=== PATIENT | female | born 1945 | race Caucasian/White ===

== ENCOUNTER 2022-06-06 11:21 | Oncology outpatient (recurring) (ONCR) | payer MEDICARE, OTHER, SELFPAY ==
[2022-06-06 12:52] LABS: Eosinophils # 0.1 10^3/uL (0.0-0.8); Eosinophils % 7.3 %; Hematocrit 40.1 % (37.0-47.0); Lymphocytes # 1.2 10^3/uL (0.8-4.8); Lymphocytes % 64.1 %; Mean Corpuscular HGB Conc 32.4 g/dL (30.0-36.0); Mean Corpuscular Hemoglobin 31.5 pg (28.0-34.0); Mean Corpuscular Volume 97.1 fl (81-99); Mean Platelet Volume 9.7 fL (7.4-10.4); Monocytes # 0.2 10^3/uL (0.2-0.9); Monocytes % 10.9 %; Nucleated Red Blood Cells % 0 %; Platelet Count 151 10^3/cmm (130-400); Red Blood Count 4.13 10^6/uL (4.1-5.3); Red Cell Distribution Width 13.7 % (12.1-15.1); White Blood Count 1.9 10^3/uL (4.0-10.0)
[2022-06-06 12:56] LABS: Neutrophils # 0.23 10^3/uL (1.8-7.7)
[2022-06-06 13:10] LABS: Alanine Aminotransferase 25 U/L (0-33); Albumin Level 3.9 g/dL (3.5-5.2); Alkaline Phosphatase 126 U/L (35-105); Anion Gap 12.9 (5-19); Aspartate Amino Transferase 18 U/L (0-32); Blood Urea Nitrogen 12 mg/dL (8-23); Calcium 9.1 mg/dL (8.5-10.5); Carbon Dioxide 27 mmol/L (22-29); Chloride 104 mmol/L (98-107); Globulin 2.3 g/dL (1.3-4.6); Glucose 98 mg/dL (65-115); Lactate Dehydrogenase 152 U/L (135-214); Osmolality Calculated 290 mOsm/kg (285-295); Potassium 3.9 mmol/L (3.5-5.1); Sodium 140 mmol/L (136-145); Total Bilirubin 0.4 mg/dL (0.15-1.2); Total Protein 6.2 g/dL (6.6-8.7)
[2022-06-06] MEDS: filgrastim-sndz 480 mcg/0.8 mL Syringe SUBCUT (14:54)
== END 2022-06-06 23:59 | disposition home or self-care (01) ==
PROVIDERS: Visit Provider Internal Medicine Medical Oncology
DX: C83.38 Diffuse large B-cell lymphoma, lymph nodes of multiple sites (principal); D70.1 Agranulocytosis secondary to cancer chemotherapy; T45.1X5A Adverse effect of antineoplastic and immunosuppressive drugs, initial encounter; Z79.899 Other long term (current) drug therapy; Z92.21 Personal history of antineoplastic chemotherapy; Z92.3 Personal history of irradiation
CPT/HCPCS: 36415; 80053; 83615; 85025; 96372; 99205; Q5101

== ENCOUNTER 2022-06-20 09:00 | Oncology outpatient (recurring) (ONCR) | payer MEDICARE, OTHER, SELFPAY ==
[2022-06-07] MEDS: filgrastim-sndz 480 mcg/0.8 mL Syringe SUBCUT (11:04)
[2022-06-08 14:36] VITALS: BP 143/72; PULSE 83; RESP 16; TEMP 37; O2SAT 98
[2022-06-08] MEDS: filgrastim-sndz 480 mcg/0.8 mL Syringe SUBCUT (14:55)
[2022-06-20 09:29] LABS: Basophils # 0.1 10^3/uL (0.0-0.1); Basophils % 1.3 %; Eosinophils % 0.6 %; Hematocrit 39.5 % (37.0-47.0); Hemoglobin 12.9 g/dL (11.5-15.3); Lymphocytes # 1.6 10^3/uL (0.8-4.8); Lymphocytes % 29.6 %; Mean Corpuscular HGB Conc 32.7 g/dL (30.0-36.0); Mean Corpuscular Hemoglobin 31.8 pg (28.0-34.0); Mean Corpuscular Volume 97.3 fl (81-99); Mean Platelet Volume 9.1 fL (7.4-10.4); Monocytes # 0.3 10^3/uL (0.2-0.9); Monocytes % 5.3 %; Neutrophils # 2.87 10^3/uL (1.8-7.7); Neutrophils % 54.5 %; Nucleated Red Blood Cells % 0 %; Platelet Count 270 10^3/cmm (130-400); Red Blood Count 4.06 10^6/uL (4.1-5.3); White Blood Count 5.3 10^3/uL (4.0-10.0)
[2022-06-20 09:46] LABS: Alanine Aminotransferase 58 U/L (0-33); Albumin Level 3.8 g/dL (3.5-5.2); Alkaline Phosphatase 141 U/L (35-105); Anion Gap 14.5 (5-19); Aspartate Amino Transferase 44 U/L (0-32); Blood Urea Nitrogen 19 mg/dL (8-23); Calcium 9.4 mg/dL (8.5-10.5); Carbon Dioxide 26 mmol/L (22-29); Chloride 104 mmol/L (98-107); Globulin 2.5 g/dL (1.3-4.6); Glucose 106 mg/dL (65-115); Osmolality Calculated 293 mOsm/kg (285-295); Potassium 4.5 mmol/L (3.5-5.1); Sodium 140 mmol/L (136-145); Total Bilirubin 0.4 mg/dL (0.15-1.2); Total Protein 6.3 g/dL (6.6-8.7)
[2022-06-20] MEDS: sodium chloride 0.9% 500 ML 75 ML IV (12:04)
[2022-06-20] MEDS: acetaminophen 325 mg Tablet 650 MG PO (12:07)
[2022-06-20] MEDS: diphenhydrAMINE 50 mg/mL SDV 1mL 25 MG IVP (12:08)
[2022-06-20 12:14] VITALS: BP 118/60; PULSE 70; RESP 16; TEMP 36.6; O2SAT 97
[2022-06-20 12:57] VITALS: BP 126/61; PULSE 73; RESP 16; TEMP 36.4; O2SAT 98
[2022-06-20 13:23] VITALS: BP 132/56; PULSE 76; RESP 16; TEMP 36.9; O2SAT 98
[2022-06-20 13:51] VITALS: BP 125/49; PULSE 73; RESP 16; TEMP 36.6; O2SAT 99
[2022-06-20 15:04] VITALS: BP 111/55; PULSE 81; RESP 16; TEMP 36.8; O2SAT 98
[2022-06-21 07:06] LABS: Lactate Dehydrogenase 216 U/L (135-214)
== END 2022-06-29 23:59 | disposition home or self-care (01) ==
PROVIDERS: Visit Provider Internal Medicine Medical Oncology
DX: C83.38 Diffuse large B-cell lymphoma, lymph nodes of multiple sites (principal); Z51.12 Encounter for antineoplastic immunotherapy
CPT/HCPCS: 80053; 83615; 85025; 96372; 96375; 96413; 96415; J1200; J7040; Q5101; Q5115

== ENCOUNTER 2022-07-08 10:00 | Oncology outpatient (recurring) (ONCR) | payer MEDICARE, OTHER, SELFPAY ==
[2022-07-04 11:41] LABS: Basophils % 0.9 %; Eosinophils # 0.2 10^3/uL (0.0-0.8); Eosinophils % 7.1 %; Lymphocytes # 1.2 10^3/uL (0.8-4.8); Lymphocytes % 36.8 %; Mean Corpuscular HGB Conc 32.5 g/dL (30.0-36.0); Mean Corpuscular Volume 98.5 fl (81-99); Mean Platelet Volume 9.5 fL (7.4-10.4); Monocytes # 0.3 10^3/uL (0.2-0.9); Monocytes % 8.4 %; Neutrophils # 1.19 10^3/uL (1.8-7.7); Neutrophils % 36.9 %; Nucleated Red Blood Cells % 0 %; Platelet Count 163 10^3/cmm (130-400); Red Blood Count 4.06 10^6/uL (4.1-5.3); Red Cell Distribution Width 14.2 % (12.1-15.1); White Blood Count 3.2 10^3/uL (4.0-10.0)
[2022-07-04 11:42] LABS: Slide Review Slide Review Perform
[2022-07-04 12:02] LABS: Alanine Aminotransferase 22 U/L (0-33); Albumin Level 3.8 g/dL (3.5-5.2); Alkaline Phosphatase 125 U/L (35-105); Blood Urea Nitrogen 18 mg/dL (8-23); Calcium 9.1 mg/dL (8.5-10.5); Carbon Dioxide 29 mmol/L (22-29); Chloride 101 mmol/L (98-107); Globulin 2.3 g/dL (1.3-4.6); Glucose 101 mg/dL (65-115); Osmolality Calculated 284 mOsm/kg (285-295); Sodium 136 mmol/L (136-145); Total Bilirubin 0.4 mg/dL (0.15-1.2); Total Protein 6.1 g/dL (6.6-8.7)
[2022-07-04 12:12] LABS: Anion Gap 10.2 (5-19); Aspartate Amino Transferase 23 U/L (0-32); Potassium 4.2 mmol/L (3.5-5.1)
[2022-07-07 11:44] LABS: Hematocrit 41.2 % (37.0-47.0); Hemoglobin 13.7 g/dL (11.5-15.3); Mean Corpuscular HGB Conc 33.3 g/dL (30.0-36.0); Mean Corpuscular Hemoglobin 32.1 pg (28.0-34.0); Mean Corpuscular Volume 96.5 fl (81-99); Mean Platelet Volume 9.6 fL (7.4-10.4); Platelet Count 172 10^3/cmm (130-400); Red Blood Count 4.27 10^6/uL (4.1-5.3); White Blood Count 2.7 10^3/uL (4.0-10.0)
[2022-07-07 12:00] VITALS: BP 138/78; PULSE 84; RESP 18; TEMP 36.6; O2SAT 98
[2022-07-07 12:16] LABS: Slide Review Slide Review Perform
[2022-07-07 12:17] LABS: Absolute Eosinophils 0.2 10^3/cmm (0.0-0.7); Absolute Segmented Neutrophil 0.4 10/cmm (1.6-7.1); Band Neutrophils Absolute 0.2 10^3/cmm (0.0-1.2); Eosinophils 9 %; Lymphocytes 56 %; Lymphocytes Absolute 1.5 10^3/cmm (1.2-3.4); Monocytes Absolute 0.1 10^3/cmm (0.1-0.6); Platelet Estimate Normal (Normal); Segmented Neutrophils 16 %; Total Cells Counted 100 (0-100)
[2022-07-07 12:24] LABS: Absolute Neutrophil 0.6 10^3/cmm (1.4-6.5)
[2022-07-07] MEDS: filgrastim-sndz 480 mcg/0.8 mL Syringe SUBCUT (12:44)
--- NOTE | 2022-07-07 14:34 | PC.NURSE ---
patient came in for the lab test to verify if she needs zarxio sq with DR Galaviz reviewing labs and ordering the zarxio for next three doses.
[2022-07-08] MEDS: filgrastim-sndz 480 mcg/0.8 mL Syringe SUBCUT (10:21)
== END 2022-07-30 23:59 | disposition home or self-care (01) ==
PROVIDERS: Visit Provider Internal Medicine Medical Oncology
DX: C83.38 Diffuse large B-cell lymphoma, lymph nodes of multiple sites; Z79.899 Other long term (current) drug therapy
CPT/HCPCS: 36415; 80053; 85007; 85025; 96372; 96401; Q5101

== ENCOUNTER 2022-12-27 10:30 | Oncology outpatient (recurring) (ONCR) | payer MEDICARE, OTHER, SELFPAY ==
[2022-12-12 10:30] LABS: Basophils % 0.8 %; Eosinophils # 0.5 10^3/uL (0.0-0.8); Eosinophils % 11.9 %; Hematocrit 39.7 % (37.0-47.0); Hemoglobin 13.2 g/dL (11.5-15.3); Lymphocytes # 1.6 10^3/uL (0.8-4.8); Lymphocytes % 41.1 %; Mean Corpuscular HGB Conc 33.2 g/dL (30.0-36.0); Mean Corpuscular Hemoglobin 30.9 pg (28.0-34.0); Monocytes # 0.3 10^3/uL (0.2-0.9); Monocytes % 8.1 %; Neutrophils # 1.06 10^3/uL (1.8-7.7); Nucleated Red Blood Cells % 0 %; Platelet Count 174 10^3/cmm (130-400); Red Blood Count 4.27 10^6/uL (4.1-5.3); Red Cell Distribution Width 14.3 % (12.1-15.1); White Blood Count 3.9 10^3/uL (4.0-10.0)
[2022-12-12 10:34] VITALS: BP 109/58; PULSE 77; RESP 16; TEMP 36.2; O2SAT 96
[2022-12-12 10:59] LABS: Neutrophils % 38.1 %; Slide Review Slide Review Perform
[2022-12-12] MEDS: filgrastim-sndz 480 mcg/0.8 mL Syringe SUBCUT (12:23)
[2022-12-12 12:36] VITALS: BP 109/58; PULSE 77; RESP 18; TEMP 36.2; O2SAT 96
[2022-12-27 11:25] LABS: Basophils # 0.1 10^3/uL (0.0-0.1); Basophils % 1.5 %; Eosinophils # 0.1 10^3/uL (0.0-0.8); Eosinophils % 1.3 %; Hemoglobin 13.4 g/dL (11.5-15.3); Lymphocytes # 1.7 10^3/uL (0.8-4.8); Lymphocytes % 31.4 %; Mean Corpuscular HGB Conc 32.7 g/dL (30.0-36.0); Mean Corpuscular Hemoglobin 30.4 pg (28.0-34.0); Mean Platelet Volume 9.1 fL (7.4-10.4); Monocytes # 0.4 10^3/uL (0.2-0.9); Monocytes % 6.8 %; Neutrophils # 2.49 10^3/uL (1.8-7.7); Neutrophils % 45.8 %; Nucleated Red Blood Cells % 0 %; Platelet Count 272 10^3/cmm (130-400); Red Blood Count 4.41 10^6/uL (4.1-5.3); Red Cell Distribution Width 14.2 % (12.1-15.1); White Blood Count 5.4 10^3/uL (4.0-10.0)
[2022-12-27 11:48] LABS: Alanine Aminotransferase 19 U/L (0-33); Alkaline Phosphatase 112 U/L (35-105); Anion Gap 13.3 (5-19); Aspartate Amino Transferase 18 U/L (0-32); Blood Urea Nitrogen 23 mg/dL (8-23); Calcium 8.6 mg/dL (8.5-10.5); Carbon Dioxide 25 mmol/L (22-29); Chloride 107 mmol/L (98-107); Globulin 2.2 g/dL (1.3-4.6); Glucose 99 mg/dL (65-115); Lactate Dehydrogenase 196 U/L (135-214); Osmolality Calculated 296 mOsm/kg (285-295); Potassium 4.3 mmol/L (3.5-5.1); Sodium 141 mmol/L (136-145); Total Bilirubin 0.4 mg/dL (0.15-1.2); Total Protein 6.2 g/dL (6.6-8.7)
[2022-12-27 12:06] LABS: Slide Review Slide Review Perform
[2022-12-27] MEDS: sodium chloride 0.9% 500 ML 100 ML IV (13:19)
[2022-12-27] MEDS: acetaminophen 325 mg Tablet 650 MG PO (13:19)
[2022-12-27] MEDS: diphenhydrAMINE 50 mg/mL SDV 1mL 25 MG IVP (13:20)
[2022-12-27 13:35] VITALS: BP 141/78; PULSE 67; TEMP 36.6; O2SAT 97
[2022-12-27 14:05] VITALS: BP 134/67; TEMP 36.2; O2SAT 95
[2022-12-27 14:35] VITALS: BP 130/71; PULSE 68; TEMP 36.8; O2SAT 96
[2022-12-27 15:08] VITALS: BP 126/64; PULSE 70; TEMP 36.5; O2SAT 100
[2022-12-27 16:44] VITALS: BP 128/69; PULSE 67; TEMP 36.3; O2SAT 96
== END 2022-12-28 23:59 | disposition home or self-care (01) ==
PROVIDERS: Visit Provider Internal Medicine Medical Oncology
DX: Z51.12 Encounter for antineoplastic immunotherapy (principal); C83.38 Diffuse large B-cell lymphoma, lymph nodes of multiple sites
CPT/HCPCS: 80053; 83615; 85025; 96372; 96375; 96413; 96415; 99214; J1200; J1642; J7040; Q5101; Q5115

== ENCOUNTER 2023-12-19 09:18 | Oncology outpatient (recurring) (ONCR) | payer MEDICARE, OTHER, SELFPAY ==
[2023-12-06 15:25] LABS: Hematocrit 36.8 % (36-47); Mean Corpuscular HGB Conc 31.8 g/dL (30-55); Mean Corpuscular Volume 91.3 fl (85-98); Mean Platelet Volume 9.3 fL (7.4-10.4); Platelet Count 252 10^3/cmm (157-399); Red Blood Count 4.03 10^6/uL (3.85-5.65); Red Cell Distribution Width 15.3 % (12.1-15.1); White Blood Count 1.54 10^3/uL (3.29-11.43)
[2023-12-06 15:41] LABS: Alanine Aminotransferase 27 U/L (0-33); Albumin Level 3.4 g/dL (3.5-5.2); Alkaline Phosphatase 154 U/L (35-105); Anion Gap 16.2 (5-19); Aspartate Amino Transferase 22 U/L (0-32); Blood Urea Nitrogen 11 mg/dL (8-23); Calcium 8.7 mg/dL (8.5-10.5); Carbon Dioxide 26 mmol/L (22-29); Chloride 100 mmol/L (98-107); Globulin 2.8 g/dL (1.3-4.6); Glucose 103 mg/dL (65-115); Osmolality Calculated 288 mOsm/kg (285-295); Potassium 3.2 mmol/L (3.5-5.1); Sodium 139 mmol/L (136-145); Total Bilirubin 0.3 mg/dL (0.15-1.2); Total Protein 6.2 g/dL (6.6-8.7)
[2023-12-06 16:00] LABS: Slide Review Slide Review Perform
[2023-12-06 16:01] LABS: Absolute Eosinophils 0.1 10^3/cmm (0.0-0.7); Absolute Segmented Neutrophil 0.1 10/cmm (1.6-7.1); Eosinophils 6 %; Lymphocytes 80 %; Lymphocytes Absolute 1.2 10^3/cmm (1.2-3.4); Platelet Estimate Normal (Normal); Segmented Neutrophils 5 %; Total Cells Counted 100 (0-100)
[2023-12-06 16:02] LABS: Absolute Neutrophil 0.1 10^3/cmm (1.4-6.5)
[2023-12-07] MEDS: filgrastim-sndz 480 mcg/0.8 mL Syringe SUBCUT (09:46)
[2023-12-08] MEDS: filgrastim-sndz 480 mcg/0.8 mL Syringe SUBCUT (10:40)
[2023-12-08 10:46] VITALS: BP 155/76; PULSE 97; RESP 16; TEMP 36.8; O2SAT 97
[2023-12-11 14:14] VITALS: BP 137/71; PULSE 99; RESP 18; TEMP 36.8; O2SAT 92
[2023-12-11] MEDS: filgrastim-sndz 480 mcg/0.8 mL Syringe SUBCUT (14:16)
[2023-12-19 10:16] LABS: Hematocrit 37.1 % (36-47); Mean Corpuscular HGB Conc 31.8 g/dL (30-55); Mean Corpuscular Volume 91.2 fl (85-98); Mean Platelet Volume 9.4 fL (7.4-10.4); Platelet Count 280 10^3/cmm (157-399); Red Blood Count 4.07 10^6/uL (3.85-5.65); Red Cell Distribution Width 15.7 % (12.1-15.1); White Blood Count 5.81 10^3/uL (3.29-11.43)
[2023-12-19] MEDS: alteplase 1 mg/mL SDV 2 mL 2 MG INTRACATH (10:21)
[2023-12-19 10:32] LABS: Alanine Aminotransferase 17 U/L (0-33); Albumin Level 3.5 g/dL (3.5-5.2); Alkaline Phosphatase 148 U/L (35-105); Aspartate Amino Transferase 23 U/L (0-32); Blood Urea Nitrogen 15 mg/dL (8-23); Calcium 8.8 mg/dL (8.5-10.5); Carbon Dioxide 27 mmol/L (22-29); Chloride 108 mmol/L (98-107); Creatinine Clr Calc Pharmacy 54.7601; Globulin 2.5 g/dL (1.3-4.6); Glucose 115 mg/dL (65-115); Osmolality Calculated 300 mOsm/kg (285-295); Sodium 144 mmol/L (136-145); Total Bilirubin 0.3 mg/dL (0.15-1.2)
[2023-12-19 11:33] LABS: Slide Review Slide Review Perform; Total Cells Counted 100 (0-100)
[2023-12-19 11:38] LABS: Absolute Segmented Neutrophil 2.8 10/cmm (1.6-7.1); Band Neutrophils Absolute 0.5 10^3/cmm (0.0-1.2); Segmented Neutrophils 48 %
[2023-12-19 11:39] LABS: Absolute Neutrophil 3.3 10^3/cmm (1.4-6.5); Basophils Absolute 0.1 10^3/cmm (0.0-0.2); Eosinophils 0 %; Lymphocytes 23 %; Lymphocytes Absolute 1.4 10^3/cmm (1.2-3.4); Monocytes Absolute 0.4 10^3/cmm (0.1-0.6); Platelet Estimate Normal (Normal); Smudge Cells Trace
[2023-12-19] MEDS: diphenhydrAMINE 50 mg/mL SDV 1mL 25 MG IVP (12:29)
[2023-12-19] MEDS: acetaminophen 325 mg Tablet 650 MG PO (12:30)
[2023-12-19 13:00] VITALS: BP 99/69; PULSE 87; RESP 16; TEMP 36.9; O2SAT 97
[2023-12-19] MEDS: RITUXIMAB PVVR IV (13:00)
[2023-12-19] MEDS: SODIUM CHLORIDE 0.9% IV (13:00)
[2023-12-19 13:30] VITALS: BP 138/79; PULSE 87; RESP 16; TEMP 36.6; O2SAT 95
[2023-12-19 14:00] VITALS: BP 148/75; PULSE 98; RESP 16; TEMP 36.6; O2SAT 99
[2023-12-19 14:30] VITALS: BP 132/82; PULSE 88; RESP 16; TEMP 36.6; O2SAT 93
[2023-12-19] MEDS: filgrastim-sndz 480 mcg/0.8 mL Syringe SUBCUT (16:16)
[2023-12-19 16:20] VITALS: BP 141/72; PULSE 85; RESP 17; TEMP 36.1; O2SAT 99
== END 2023-12-29 23:59 | disposition home or self-care (01) ==
PROVIDERS: Nurse Practitioner Family; Visit Provider Internal Medicine Medical Oncology
DX: Z51.12 Encounter for antineoplastic immunotherapy (principal); Z53.9 Procedure and treatment not carried out, unspecified reason; C83.38 Diffuse large B-cell lymphoma, lymph nodes of multiple sites; D70.1 Agranulocytosis secondary to cancer chemotherapy; T45.1X5A Adverse effect of antineoplastic and immunosuppressive drugs, initial encounter; Z79.899 Other long term (current) drug therapy; L98.9 Disorder of the skin and subcutaneous tissue, unspecified
CPT/HCPCS: 36415; 36591; 36593; 80053; 85007; 85025; 96372; 96375; 96401; 96413; 96415; 99213; 99214; J1200; J2997; J7040; Q5101; Q5119